=== PATIENT | male | born 1985 | race Caucasian/White ===

== ENCOUNTER 2019-01-31 18:46 | Emergency (ER) | payer OTHER ==
--- NOTE | 2019-01-31 18:50 | ED.ADGEN ---
Past History Past Medical History: GERD Adult General Chief Complaint Chief Complaint ".. I am having really bad reflux...". ." I ve been taking my meds... but it is no better.. I did start also taking pepto bismal.. . Its not helped either... I did eat a burrito at breakfast... I think that made it worse, because I had I woke up with my stomach really burning... .. Earlier in the week I had headache and started on BC powder... But usually my anti-acid meds work.. there is some family hx of cardiac stuff.. So I figured... 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 Patient states he's had history of chronic problems with GERD. Recently restarted his GERD meds., but this did not seem to help. Patient localizes pain in his upper gastric area. Has done several flve-[id number]-spcctnr meds including Pepto-Bismol with no relief of his symptoms. Patient recently did have a headache on Saturday and started taking BC powders. Patient does vape. No recent overseas travel. No specific ill contacts. No trauma. Does have some remote family history of family members who developed cardiac problems in their 60s. All family members did smoke. Patient has never had a colonoscopy or EGD. Patient denies any bad food intake but has eaten high-fat meals such as the Burrito he had for breakfast. Patient notes these meals seemed to make his abdomen pain worse. Patient states symptoms are worse after he has been laying down. No history of dark or tarry stools until he started the Pepto-Bismol. These dark stools cleared after he stopped the Pepto-bismol. Patient does regular PT for his demands, works out almost daily. Review of Systems Review of Systems Constitutional: Denies fever or chills [] Eyes: Denies change in visual acuity, redness, or eye pain [] HENT: Denies nasal congestion or sore throat [] Respiratory: Denies cough or shortness of breath [] Cardiovascular: No additional information not addressed in HPI [] GI: Complaints of epigastric abdominal pain. Denies, nausea, vomiting, bloody stools or diarrhea [] : Denies dysuria or hematuria [] Musculoskeletal: Denies back pain or joint pain [] Integument: Denies rash or skin lesions [] Neurologic: Denies headache, focal weakness or sensory changes [] Endocrine: Denies polyuria or polydipsia [] All other systems were reviewed and found to be within normal limits, except as documented in this note. Family History Family History Cardiac problems in their 60s Current Medications Current Medications Current Medications Medications (Trade) Dose Ordered Sig/Rachel Start Time Stop Time Status Last Admin Dose Admin Acetaminophen (Tylenol) 1,000 mg 1X ONCE 01/31/19 19:45 01/31/19 19:48 DC 01/31/19 20:02 1,000 MG Famotidine (Pepcid Vial) 40 mg 1X ONCE 01/31/19 19:45 01/31/19 19:48 DC 01/31/19 20:06 40 MG Lactated Ringer's 1,000 ml @ 1,000 mls/hr Q1H 01/31/19 19:40 01/31/19 20:39 DC 01/31/19 20:01 1,000 MLS/HR Magnesium Hydroxide (Milk Of Magnesia) 2,400 mg 1X ONCE 01/31/19 19:45 01/31/19 19:48 DC 01/31/19 20:02 2,400 MG Sucralfate (Carafate) 1 gm 1X ONCE 01/31/19 19:45 01/31/19 19:48 DC 01/31/19 20:02 1 GM Allergies Allergies Allergies Coded Allergies Type Severity Reaction Last Updated Verified No Known Drug Allergies 01/31/19 No Physical Exam Physical Exam Constitutional: Well developed, well nourished, moderate acute distress, non- toxic appearance. [] HENT: Normocephalic, atraumatic, bilateral external ears normal, oropharynx moist, no oral exudates, nose normal. [] Eyes: PERRLA, EOMI, conjunctiva normal, no discharge. [] Neck: Normal range of motion, no tenderness, supple, no stridor. [] Cardiovascular: Bradycardia Heart rate regular rhythm, no murmur [] Lungs & Thorax: Bilateral breath sounds equal at apexes with a few scattered wheezes on auscultation [] Abdomen: Bowel sounds normal, soft, epigastric tenderness, no masses, no p ulsatile masses. [] Rebound to epigastric area Skin: Warm, dry, no erythema, no rash. [] Back: No tenderness, no CVA tenderness. [] Extremities: No tenderness, no cyanosis, no clubbing, ROM intact, no edema. [] No psoas sign. Neurologic: Alert and oriented X 3, normal motor function, normal sensory function, no focal deficits noted. [] Psychologic: Affect anxious, judgement normal, mood normal. [] Current Patient Data Vital Signs Vital Signs Date Time Temp Pulse Resp B/P (MAP) Pulse Ox O2 Delivery O2 Flow Rate FiO2 01/31/19 18:58 98.0 78 16 97 Room Air Lab Results Laboratory Tests Test 01/31/19 19:50 White Blood Count 11.0 x10^3/uL (4.0-11.0) Red Blood Count 5.04 x10^6/uL (4.30-5.70) Hemoglobin 15.1 g/dL (13.0-17.5) Hematocrit 45.8 % (39.0-53.0) Mean Corpuscular Volume 91 fL (79-100) Mean Corpuscular Hemoglobin 30 pg (25-35) Mean Corpuscular Hemoglobin Concent 33 g/dL (31-37) Red Cell Distribution Width 13.7 % (11.5-14.5) Platelet Count 233 x10^3/uL (140-400) Neutrophils (%) (Auto) 53 % (31-73) Lymphocytes (%) (Auto) 34 % (24-48) Monocytes (%) (Auto) 10 % (0-9) H Eosinophils (%) (Auto) 3 % (0-3) Basophils (%) (Auto) 1 % (0-3) Neutrophils # (Auto) 5.8 x10^3uL (1.8-7.7) Lymphocytes # (Auto) 3.8 x10^3/uL (1.0-4.8) Monocytes # (Auto) 1.1 x10^3/uL (0.0-1.1) Eosinophils # (Auto) 0.3 x10^3/uL (0.0-0.7) Basophils # (Auto) 0.1 x10^3/uL (0.0-0.2) Prothrombin Time 10.9 SEC (9.4-11.4) Prothrombin Time INR 1.1 (0.9-1.1) Activated Partial Thromboplast Time 29 SEC (23-33) D-Dimer (Edie) 0.55 mg/L (0.00-0.50) H Urine Collection Type Unknown Urine Color Yellow Urine Clarity Cloudy Urine pH 8.5 Urine Specific [place] 1.020 Urine Protein Neg (NEG-TRACE) Urine Glucose (UA) Neg mg/dL (NEG) Urine Ketones (Stick) Neg mg/dL (NEG) Urine Blood Neg (NEG) Urine Nitrite Neg (NEG) Urine Bilirubin Neg (NEG) Urine Urobilinogen Dipstick 0.2 mg/dL (0.2 mg/dL) Urine Leukocyte Esterase Neg (NEG) Urine RBC 0 /HPF (0-2) Urine WBC 0 /HPF (0-4) Urine Amorphous Sediment Present /HPF Urine Bacteria 0 /HPF (0-FEW) Sodium Level 143 mmol/L (136-145) Potassium Level 4.3 mmol/L (3.5-5.1) Chloride Level 104 mmol/L (98-107) Carbon Dioxide Level 29 mmol/L (21-32) Anion Gap 10 (6-14) Blood Urea Nitrogen 15 mg/dL (8-26) Creatinine 1.2 mg/dL (0.7-1.3) Estimated GFR (Cockcroft-Gault) 69.7 Glucose Level 89 mg/dL (70-99) Calcium Level 8.9 mg/dL (8.5-10.1) Magnesium Level 2.1 mg/dL (1.8-2.4) Total Bilirubin 1.0 mg/dL (0.2-1.0) Direct Bilirubin 0.2 mg/dL (0.0-0.2) Aspartate Amino Transferase (AST) 26 U/L (15-37) Alanine Aminotransferase (ALT) 39 U/L (16-63) Alkaline Phosphatase 100 U/L (46-116) Creatine Kinase 139 U/L (39-308) Troponin I Quantitative < 0.017 ng/mL (0-0.055) NO-Rjv-F-Type Natriuretic Peptide 8 pg/mL (0-124) Total Protein 7.2 g/dL (6.4-8.2) Albumin 4.1 g/dL (3.4-5.0) Lipase 165 U/L (73-393) Urine Opiates Screen Neg (NEG) Urine Methadone Screen Neg (NEG) Urine Barbiturates Neg (NEG) Urine Phencyclidine Screen Neg (NEG) Urine Amphetamine/Methamphetamine Neg (NEG) Urine Benzodiazepines Screen Neg (NEG) Urine Cocaine Screen Neg (NEG) Urine Cannabinoids Screen Neg (NEG) Urine Ethyl Alcohol Neg (NEG) EKG EKG My interpretation of EKG shows a sinus bradycardia 53 bpm. No findings of acute STEMI of contralateral changes[] Radiology/Procedures Radiology/Procedures [][address] [id number] IMAGING REPORT Signed PATIENT: MARK HASSAN ACCOUNT: [id number] : 1985 LOCATION: ER AGE: 34 SEX: M EXAM STATUS: REG ER ORD. PHYSICIAN: TERRY POWERS MD REASON: pain PROCEDURE: ACUTE ABDOMEN SERIES Exam: Acute abdominal series with one view chest INDICATION: Pain TECHNIQUE: Frontal and lateral views of the chest with upright and supine views of the abdomen Comparisons: None FINDINGS: The cardiomediastinal silhouette and pulmonary vessels are within normal limits. The lung and pleural spaces are clear. Air and stool are seen throughout the colon to level of the rectum in a nonobstructive bowel gas pattern. No free air. No suspicious masses or calcifications. Visualized osseous structures are unremarkable. IMPRESSION: 1. No acute cardiopulmonary process. 2. Nonobstructive bowel gas pattern. Electronically signed by: Ronen Ba MD (01/31/2019 9:28 PM) [facility] [place] DICTATED AND SIGNED BY: RONEN BA MD DATE: 01/31/192127 CC: TERRY POWERS MD; ELY RODRIGUEZ DO ~ Course & Med Decision Making Course & Med Decision Making Pertinent Labs and Imaging studies reviewed. (See chart for details) Patient reports complete relief of his epigastric pain after milk of magnesia and a gram of Tylenol. Due to the patient's good physical condition and normal labs at persistent pain would expect symptoms are related to GI. Patient is to avoid NSAIDs. Patient to do high dose Zantac 300 mg twice a day. Patient take Carafate 1 g 4 times a day. Patient to go on a clear fluid diet for the next 24 hours to give bowel rest. Encouraged patient to stop use of tobacco and Vaping. Patient follow-up primary care. Patient consider getting an EGD to evaluate for his GERD and gastritis. Patient return if any concerns. Must follow up. [] Final Impression Final Impression 1. GERD/ Gastritis[] 2. Chest Pain- suspect GI related Dragon Disclaimer Dragon Disclaimer This electronic medical record was generated, in whole or in part, using a voice recognition dictation system. Dragon Disclaimer This chart was dictated in whole or in part using Voice Recognition software in a busy, high-work load, and often noisy Emergency Department environment. It may contain unintended and wholly unrecognized errors or omissions. TERRY POWERS MD Jan 31, 2019 18:50
[2019-01-31 18:58] VITALS: BP 112/77
[2019-01-31] MEDS ORDERED: IV RINGERS SOLUTION,LACTATED 1,000 ML IV SCH (19:40)
[2019-01-31] MEDS ORDERED: ACETAMINOPHEN 500 MG TABLET PO ONE (19:45)
[2019-01-31] MEDS ORDERED: MAGNESIUM HYDROXIDE 2,400 MG/30 ML ORAL.SUSP. PO ONE (19:45)
[2019-01-31] MEDS ORDERED: FAMOTIDINE 20 MG/2 ML VIAL IVP ONE (19:45)
[2019-01-31] MEDS ORDERED: SUCRALFATE 1 GM TABLET. PO ONE (19:45)
[2019-01-31 20:08] LABS: BASO # 0.1 x10^3/uL (0.0-0.2); BASO % 1 % (0-3); EOS # 0.3 x10^3/uL (0.0-0.7); EOS % 3 % (0-3); HEMATOCRIT 45.8 % (39.0-53.0); HEMOGLOBIN 15.1 g/dL (13.0-17.5); LYMPH # 3.8 x10^3/uL (1.0-4.8); LYMPH % 34 % (24-48); MEAN CORPUSCULAR HEMOGLOBIN 30 pg (25-35); MEAN CORPUSCULAR HGB CONC 33 g/dL (31-37); MEAN CORPUSCULAR VOLUME 91 fL (79-100); MONO # 1.1 x10^3/uL (0.0-1.1); MONO % 10 % (0-9); NEUT # 5.8 x10^3uL (1.8-7.7); NEUT % 53 % (31-73); PLATELET COUNT 233 x10^3/uL (140-400); RED BLOOD COUNT 5.04 x10^6/uL (4.30-5.70); RED CELL DISTRIBUTION WIDTH 13.7 % (11.5-14.5)
[2019-01-31 20:16] LABS: AMPHETAMINE/METHAMPHETAMINE NEG (NEG); BARBITURATES NEG (NEG); BENZODIAZEPINES NEG (NEG); CANNABINOIDS NEG (NEG); COCAINE NEG (NEG); METHADONE NEG (NEG); OPIATES NEG (NEG); PHENCYCLIDINE NEG (NEG)
[2019-01-31 20:27] LABS: ALBUMIN 4.1 g/dL (3.4-5.0); CALCIUM 8.9 mg/dL (8.5-10.1); CREATININE 1.2 mg/dL (0.7-1.3); DIRECT BILIRUBIN 0.2 mg/dL (0.0-0.2); GFR 69.7; MAGNESIUM 2.1 mg/dL (1.8-2.4); POTASSIUM 4.3 mmol/L (3.5-5.1); TOTAL PROTEIN 7.2 g/dL (6.4-8.2)
[2019-01-31] MEDS ORDERED: RANI-376 PO (20:55)
[2019-01-31] MEDS ORDERED: ACET500T68 PO (20:55)
[2019-01-31] MEDS ORDERED: SUCR1TAB35 PO (20:55)
[2019-01-31 21:06] LABS: BACTERIA,URINE 0 /HPF (0-FEW); BILIRUBIN,URINE NEG (NEG); CLARITY,URINE CLOUDY; COLOR,URINE YELLOW; GLUCOSE,URINE NEG (NEG); NITRITE,URINE NEG (NEG); RBC,URINE 0 /HPF (0-2); UROBILINOGEN,URINE 0.2 mg/dL (0.2 mg/dL); WBC,URINE 0 /HPF (0-4)
[2019-01-31 21:07] LABS: AMORPHOUS SEDIMENT,UR PRESENT /HPF
--- NOTE | 2019-01-31 21:31 | RAD ---
Exam: Acute abdominal series with one view chest INDICATION: Pain TECHNIQUE: Frontal and lateral views of the chest with upright and supine views of the abdomen Comparisons: None FINDINGS: The cardiomediastinal silhouette and pulmonary vessels are within normal limits. The lung and pleural spaces are clear. Air and stool are seen throughout the colon to level of the rectum in a nonobstructive bowel gas pattern. No free air. No suspicious masses or calcifications. Visualized osseous structures are unremarkable. IMPRESSION: 1. No acute cardiopulmonary process. 2. Nonobstructive bowel gas pattern. Electronically signed by: Ronen Pan MD (01/31/2019 9:28 PM) [facility]
[2019-02-01 12:19] LABS: THYROID STIM HORMONE (TSH) 3.159 uIU/mL (0.358-3.740)
--- NOTE | 2019-02-03 03:57 | EKG ---
[address] [id number] Test Date: 2019-01-31 Test Time: 20:00:25 Pat Name: MARK HASSAN Department: Room: Gender: M Professional Architect: : 1985 Requested By: TERRY POWERS Order Number: [id number] Reading MD: Measurements Intervals [place] Rate: 53 P: 27 MS: 150 QRS: 18 QRSD: 96 T: 25 QT: 428 QTc: 408 Interpretive Statements SINUS RHYTHM NORMAL ECG RI6.01 No previous ECG available for comparison
== END 2019-01-31 22:10 | disposition home or self-care (01) ==
LOC: ER 18:46
DX: R07.89 Other chest pain (principal); R10.13 Epigastric pain; K21.9 Gastro-esophageal reflux disease without esophagitis
CPT/HCPCS: 36415; 71045; 74022; 80048; 80061; 80076; 80307; 81001; 82550; 83690; 83735; 83880; 84443; 84484; 85025; 85379; 85610; 85730; 96374; 99285; J3490; J7120; 93005